=== PATIENT | male | born 1960 | race Caucasian/White ===

== ENCOUNTER 2022-12-14 02:06 | Emergency (ER) | payer OTHER ==
[~2022-12-14] VITALS: Ht 157.5 cm; Wt 52.2 kg
[2022-12-14 03:54] LABS: CREATININE 0.7 mg/dL (0.6-1.3); POTASSIUM 4.6 mmol/L (3.5-5.1)
[2022-12-14 03:58] LABS: HEMATOCRIT 42.1 % (36.7-47.1); MEAN CORPUSCULAR HEMOGLOBIN 30.4 uug (23.8-33.4); MEAN CORPUSCULAR VOLUME 91.4 fL (73.0-96.2); PLATELET COUNT (AUTO) 225 K/uL (152-348)
[2022-12-14] MEDS ORDERED: HYDR-3972 PO (04:28)
[2022-12-14] MEDS ORDERED: ALBU6.7H9 INH (04:28)
== END 2022-12-14 04:50 | disposition home or self-care (01) ==
LOC: ER 02:06
DX: J20.8 Acute bronchitis due to other specified organisms (principal); Z90.81 Acquired absence of spleen; H26.8 Other specified cataract; R00.0 Tachycardia, unspecified; H54.7 Unspecified visual loss; F17.210 Nicotine dependence, cigarettes, uncomplicated
CPT/HCPCS: 36415; 71045; 83735; 85025; A4663